=== PATIENT | male | born 1960 | race Caucasian/White ===

== ENCOUNTER 2023-08-04 07:24 | Day surgery (SDC) | payer OTHER ==
[~2023-08-04] VITALS: Ht 167.6 cm; Wt 72.6 kg
[2023-08-04] MEDS ORDERED: LIDOCAINE 2% 100 MG/5 ML UJET TP ONE (08:16)
[2023-08-04] MEDS ORDERED: MIDAZOLAM 5 MG/5 ML VIAL ONE ×2 (08:16→08:17)
[2023-08-04] MEDS ORDERED: fentaNYL citrate 0.05 MG/ML VIAL ONE (08:16)
[2023-08-04] MEDS ORDERED: diphenhydrAMINE 50 MG/ML VIAL ONE (08:16)
== END 2023-08-04 08:57 | disposition home or self-care (01) ==
LOC: MDS 07:24 → MMU 07:30 → MDS 08:57
PROVIDERS: ATTEND Internal Medicine Gastroenterology
DX: K62.5 Hemorrhage of anus and rectum (principal); K64.9 Unspecified hemorrhoids; K59.00 Constipation, unspecified; I10 Essential (primary) hypertension
CPT/HCPCS: 45350; J2250; J1200; J3010